=== PATIENT | male | born 1960 | race Two or more races ===

== ENCOUNTER → 2025-02-01 | Outpatient (CLI) | payer MEDICAID, SELFPAY ==
--- NOTE | 2025-02-01 13:45 | XR_ITS ---
Exam: MRI knee without contrast, left Date and time of exam: September 03, 2024 1411 hours INDICATIONS: Injury to the knee 6 months ago with knee pain instability joint popping and stiffness Technique: Multiple axial, coronal, and sagittal sections on the knee have been obtained. T2-Weighted sagittal, fat-suppressed images, TR 3,500, TE 62, T2 weighted coronal fat-saturated images, TR 3,500, TE 62 Proton density sagittal sections, TR 1800, TE 31. T-1 weighted coronal images, TR 524, TE 13.0 Findings: Medial meniscus anterior horn truncation intermargin. Medial meniscus, body replaced by isointense signal and extruded from the joint space. Posterior horn medial meniscus large horizontal linear tear communicating inner margin. Lateral meniscus anterior horn is intact Lateral meniscus, body is intact Posterior horn lateral meniscus is intact Anterior cruciate ligament severely attenuated Posterior cruciate ligament appears intact. Knee effusion is large with debris. Quadriceps and patellar tendons appear intact. There is no evidence of tendinosis. Inflammatory change or fracture of Hoffa's fat pad is not seen. Medial patellar facet demonstrates severe thinning. Lateral patellar facet cartilage demonstrates severe thinning. Trochlear cartilage demonstrates severe thinning. Marrow signal adequate. Medial collateral ligament appears intact. No meniscocapsular separation is seen. Illiotibial band and fibular collateral ligament are intact. Biceps femoris tendons appear intact. Medial femoral condylar articular cartilage demonstrates severe thinning. Lateral femoral condylar articular cartilage demonstratessevere thinning. Tibial plateau cartilage demonstrates severe thinning. Impression: Extensive medial meniscus tears Severe attenuation anterior cruciate ligament
== END | disposition home or self-care (01) ==
PROVIDERS: PCP Nurse Practitioner Family; Referring Provider Nurse Practitioner Family; Visit Provider Nurse Practitioner Family
DX: S83.242A Other tear of medial meniscus, current injury, left knee, initial encounter (principal); X58.XXXA Exposure to other specified factors, initial encounter; M25.862 Other specified joint disorders, left knee
CPT/HCPCS: 73721

== ENCOUNTER 2025-04-27 10:00 | Outpatient (RCR) | payer MEDICAID, SELFPAY ==
--- NOTE | 2025-04-11 10:43 | PT.ODAYNRPT ---
PT Outpatient Daily Note OP Daily Note Outpatient Physical Therapy Treatment Date: 04/11/25 Visit Reasons: back pain Subjective: Pt c/o mid LBP. Objective: Please see flow sheet for ther ex list. Assessment: Interventions completed with minimal pain and soreness. Plan: Continue with pOC. Length of Time (minutes) of Treatment: 30 Minutes Procedure Charges Therapeutic Exercise 30 minutes: Yes
--- NOTE | 2025-04-20 10:27 | PT.ODAYNRPT ---
PT Outpatient Daily Note OP Daily Note Outpatient Physical Therapy Treatment Date: 04/20/25 Visit Reasons: back pain Subjective: Continued LBP Objective: See F/S for therex Mechanical traction L/S x7' at 20 lbs Assessment: Mod/high tissue irritability of L/S limits prone tolerance and trunk fwd bending Plan: Continue per POC Length of Time (minutes) of Treatment: 30 Minutes Procedure Charges Therapeutic Exercise 30 minutes: Yes
--- NOTE | 2025-04-27 11:27 | PT.ODAYNRPT ---
PT Outpatient Daily Note OP Daily Note Outpatient Physical Therapy Treatment Date: 04/27/25 Visit Reasons: back pain Subjective: Pt reports back is sore and achy today, was active yesterday. Objective: Please see flow sheet for ther ex list. Assessment: Slow progress with interventions due to pain response. Plan: Continue with pOC. Length of Time (minutes) of Treatment: 30 Minutes Procedure Charges Therapeutic Exercise 30 minutes: Yes
== END 2025-05-01 23:59 | disposition home or self-care (01) ==
LOC: CPTX 10:00
PROVIDERS: PCP Nurse Practitioner Family; Referring Provider Nurse Practitioner Family; Visit Provider Nurse Practitioner Family
DX: M54.50 Low back pain, unspecified (principal); M41.86 Other forms of scoliosis, lumbar region; I10 Essential (primary) hypertension; E11.9 Type 2 diabetes mellitus without complications
CPT/HCPCS: 97110

== ENCOUNTER 2025-05-10 10:30 | Outpatient (RCR) | payer MEDICAID, SELFPAY ==
--- NOTE | 2025-05-04 11:23 | PT.ODAYNRPT ---
PT Outpatient Daily Note OP Daily Note Outpatient Physical Therapy Treatment Date: 05/04/25 Visit Reasons: BACK PAIN Subjective: Pt reports no changes with symptoms, contnues to have pain. Objective: Please see flow sheet for ther ex list. Assessment: Progression of interventions slow due to pt pain response. Plan: Continue wtih pOC. Length of Time (minutes) of Treatment: 30 Minutes Procedure Charges Therapeutic Exercise 30 minutes: Yes
--- NOTE | 2025-05-10 11:05 | PT.ODS1RPT ---
PT OP Progress/Discharge Note Date of Service: 05/10/25 Progress Note/DC Note Progress Note/Discharge Note: DC Note Patient Information Visit Reasons: BACK PAIN Service Continue Service or Discharge: Discharge Discharge Date: 05/10/25 Status Subjective: The LBP is the same since starting therapy and he's doing HEP Objective: Trunk AROM: FB: 10 from floor Extension: 30% of full TTP: min/mod paraspinals L5-S1 Assessment: Pt has attended the eval and 5 Rx sessions with limited progress with therapy goals due to continued LBP consistent with lumbar DDD. He's not making progress with goals or benefitting from skilled therapy. Pt may benefit from further diagnostic imaging of L/S such as MRI. Plan: D/C Procedure Charges Therapeutic Exercise 30 minutes: Yes
== END 2025-05-31 23:59 | disposition home or self-care (01) ==
LOC: CPTX 10:30
PROVIDERS: PCP Nurse Practitioner Family; Referring Provider Nurse Practitioner Family; Visit Provider Nurse Practitioner Family
DX: M54.50 Low back pain, unspecified (principal); M41.86 Other forms of scoliosis, lumbar region; I10 Essential (primary) hypertension; E11.9 Type 2 diabetes mellitus without complications
CPT/HCPCS: 97110

== ENCOUNTER 2025-08-04 13:17 | Outpatient (AMB) | payer MEDICAID, SELFPAY ==
[2025-08-04 13:33] VITALS: BP 131/81; PULSE 75; RESP 18; TEMP 36.2; O2SAT 97; BMI 23.8
--- NOTE | 2025-08-04 13:33 | PD.ORTHCLVIS ---
Vital signs 08/04/25 13:33 Height 1.83 m Height Method Measured Weight 79.832 kg Weight Measurement Method Standing Scale BMI 23.8 BP 131/81 H Blood Pressure Source Automatic Cuff Blood Pressure Location Left Upper Arm Position Sitting Respiration 18 Pulse 75 Pulse Source Monitor Temp 97.1 F Temp Source Temporal Artery Scan Pulse Oximetry (%) 97 Oxygen Delivery Method Room Air Med/Allergies Allergies & Medications Allergies No Known Allergies Allergy (Verified 08/04/25 13:34) Medication Reconciliation No Known Home Medications 08/04/25 [History Confirmed 08/04/25] Exam Exam Patient is in no acute distress and is cooperative with the examination today. Breathing is nonlabored. Patient has a normal mood and affect. Bilateral extremities were evaluated and demonstrates sensation intact to light touch. Palpable pedal pulses are present. No significant edema is present. Bilateral hips were examined. The patient has no pain with log roll of the hips. Internal rotation to 30 degrees and external rotation to 30 degrees is painless. Negative FADIR. Right knee was examined today. The right knee is in reasonable alignment. Range of motion from 0-120 degrees. Knee is stable to varus and valgus as well as AP translation with <5mm. Patient has a negative McMurrays. There is no pain with patellofemoral compression and no crepitus noted. The knee is nontender to palpation. Left knee was examined today. The left knee is in varus alignment. Range of motion from 0-115 degrees. Knee is stable to varus and valgus as well as AP translation with <5mm. Patient has a negative McMurrays. There is no pain with patellofemoral compression and no crepitus noted. The knee is tender to palpation medially. Assessment and Plan Problem List (1) Unilateral primary osteoarthritis, left knee: Status: Acute Plan: ASSESSMENT AND PLAN 1. Left knee pain: The patient reports left knee pain that started about 3 years ago. He has not had any knee or hip surgeries or injections. He has tried physical therapy and uses ibuprofen and naproxen for pain relief. X-rays indicate significant arthritis, and he experiences pain primarily when overexerting himself with activities like walking. Injections will be initiated as a part of the treatment plan. Additional x-rays will be ordered to further evaluate the condition. Authorization for a cortisone injection will be needed. 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 3 ([id number]) MA Intake Visit Data Collection New Patient or Established: New Patient (never been to [facility]) Reason for Visit:: LEFT KNEE POSSIBLE ACL Seen by Clinical Staff ONLY (RN/MA): No 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: Yes PCP or OBGYN visit in last 3 months: Yes Hx Now: No Do You Feel Safe at Home: Yes Authorities Contacted: N/A Questionairres Past Medical History Past Medical History Have you ever been diagnosed with any of the following: Subjective Visit Visit for: new patient and knee Immunization / Flu Flu Vaccine in the Last 12 Months: No Flu Vaccine Exclusion Criteria: Refused by Patient History of Present Illness Chief complaint: LEFT KNEE POSSIBLE ACL Date of injury / onset of symptoms: 3 YEARS AGO HISTORY OF PRESENT ILLNESS I, Pino Urban, have obtained verbal consent from the patient, to be recorded during this encounter which may include, but not limited to, medical history, examination, treatment plans, and relevant health information.? Patient was informed that recording will be read and reviewed by myself before inclusion in the medical chart. Patient is a 65 yo male with leftknee pain and left knee osteoarthritis. The patient presents today with left knee pain that started about 3 years ago. He reports experiencing intermittent pain in his left knee, which is exacerbated by prolonged walking. His most recent x-rays were completed laying down. He has not tried injections and has undergone approximately 6 sessions of physical therapy, which did not alleviate his symptoms. Ibuprofen and naproxen provide some relief. Personal History Occupation: RETIRED Red flag PMH: none Pain Pain level (0-10): 0 Pain location: inside (medial) Pain quality: aching Pain timing: increases with activity Associated signs & symptoms: numbness Ambulatory data Ambulatory device: none Treatments Number of previous injections: 0 Improvement with previous injections: No Number of Physical Therapy sessions: 6 Improvement with PT: No Improvement with NSAIDS: yes (IBUPROFEN) Review of Systems Review of Systems: All systems negative unless otherwise noted in HPI.
--- NOTE | 2025-08-04 13:38 | XR_ITS ---
EXAMINATION: Bilateral AP knees standing single view PA standing left knee flexion, standing lateral, axial left knee 3 views total 4 views Date and time: August 04, 2025, 1410 hours INDICATIONS: Left knee pain beginning 3 years ago. FINDINGS: Moderate osteopenia. Moderate narrowing medial joint space right knee Advanced narrowing medial joint space left knee Significant osteoarthritis left patellofemoral joint Moderate osteoarthritis lateral joint space left knee IMPRESSION: Moderate to advanced left knee tricompartment osteoarthritis
== END 2025-08-04 13:44 | disposition home or self-care (01) ==
LOC: HODSRG 13:17
PROVIDERS: PCP Nurse Practitioner Family; Referring Provider Nurse Practitioner Family; Supervising Provider Orthopaedic Surgery Adult Reconstructive Orthopaedic Surgery; Visit Provider Orthopaedic Surgery Adult Reconstructive Orthopaedic Surgery
DX: M17.12 Unilateral primary osteoarthritis, left knee (principal); M25.562 Pain in left knee
CPT/HCPCS: 73564; 99203; G0463